=== PATIENT | male | born 1965 | race Caucasian/White ===

== ENCOUNTER 2019-12-06 14:27 | Inpatient (IN) ==
[2019-12-06] MEDS ORDERED: 0.9 % Sodium Chloride 1,000 ML IVC ONE ×2 (15:12→18:23)
[2019-12-06] MEDS ORDERED: cefTRIAXone 1,000 MG in Water for inj. (sterile) 10 ML IVP ONE (15:12)
[2019-12-06 15:34] LABS: Basophils % 0.2 %; Eosinophils % 0.1 %; Hematocrit 46.4 % (37.5-50.1); Hemoglobin 15.4 g/dL (12.9-16.9); Immature Granulocytes % 0.7 % (0-4); Lymphocytes # 0.7 K/mcL (0.6-4.6); Lymphocytes % 4.2 %; Mean Corpuscular HGB Conc 33.2 g/dL (31.6-35.5); Mean Corpuscular Hemoglobin 33.8 pg (28.0-33.3); Mean Corpuscular Volume 101.8 fL (83.0-100.0); Mean Platelet Volume 10.8 fL (9.4-12.4); Monocytes # 0.7 K/mcL (0.0-1.3); Monocytes % 4.2 %; Neutrophils # 14.9 K/mcL (1.6-8.9); Platelet Count 273 K/mcL (140-400); Red Blood Count 4.56 M/mcL (4.19-5.50); Red Cell Distribution Width 14.1 % (11.5-14.5); Segmented Neutrophils % 90.6 %; White Blood Count 16.5 K/mcL (4.3-11.1)
[2019-12-06 15:48] LABS: INR 1.5; Prothrombin Time 16.7 Seconds (9.4-12.1)
[2019-12-06 15:51] LABS: Activated Partial Thrombo Time 32.1 Seconds (26.0-36.0)
[2019-12-06 15:54] LABS: Alanine Aminotransferase 15 Units/L (7-52); Albumin 3.1 g/dL (3.5-5.7); Albumin/Globulin Ratio 0.7 (1.1-2.2); Alkaline Phosphatase 71 Units/L (34-104); Aspartate Amino Transferase 21 Units/L (13-39); BUN/Creatinine Ratio 27 (6-26); Bilirubin,Direct 0.1 mg/dL (0.0-0.2); Bilirubin,Indirect 0.5 mg/dL (0.0-1.0); Bilirubin,Total 0.6 mg/dL (0.3-1.0); Blood Urea Nitrogen 29 mg/dL (6-20); Carbon Dioxide 29 mEq/L (23-29); Chloride 106 mEq/L (98-107); Globulin 4.3 g/dL (2.4-3.5); Glucose 163 mg/dL (70-105); Magnesium 2.3 mg/dL (1.6-2.6); Osmolality,Calculated 305 (280-300); Potassium 3.5 mEq/L (3.5-5.1); Sodium 143 mEq/L (136-145); Total Protein 7.4 g/dL (6.4-8.9); Troponin I 0.03 ng/mL (< 0.04); eGFR For African Americans > 60 (> 60); eGFR For Non-African Americans > 60 (> 60)
[2019-12-06] MEDS ORDERED: levoFLOXacin 500 MG/100 ML 500 MG/100 ML BAG IVPB ONE (16:12)
[2019-12-06 16:30] LABS: Bacteria,Urine None Seen per hpf (None-Few); Bilirubin,Urine Small (Negative); Blood,Urine Negative (Negative); Clarity,Urine Cloudy (Clear); Color,Urine Dark Yellow (Yellow); Glucose,Urine (UA) Normal (Normal); Hyaline Casts,Urine None Seen per lpf (None-Few); Ketones,Urine Trace mg/dL (Negative); Leukocyte Esterase,Urine Small (Negative); Nitrite,Urine Negative (Negative); PH,Urine 5.5 pH Units (5.0-8.0); Protein,Urine 30 mg/dL (Neg-Trace); RBC,Urine 0-3 per hpf (0-3); Specific Gravity,Urine 1.028 (1.010-1.025); Squamous Epithelial Cell,Urine Many per lpf (None-Few); Urobilinogen,Urine Normal (Normal); WBC,Urine 0-3 per hpf (0-3)
[2019-12-06] MEDS ORDERED: 0.9 % Sodium Chloride 1,000 ML ONE (17:16)
[2019-12-06] MEDS ORDERED: Haloperidol Lactate 5 MG/ML VIAL IM ONE (18:05)
[2019-12-06] MEDS ORDERED: *HR* LORazepam 2 MG/ML VIAL ONE (19:46)
[2019-12-06] MEDS ORDERED: *HR* LORazepam 2 MG/ML VIAL IVP ONE (19:51)
[2019-12-06] MEDS ORDERED: 0.9 % Sodium Chloride 500 ML IVC ONE (20:28)
[2019-12-06] MEDS ORDERED: 0.9 % Sodium Chloride 500 ML ONE (20:29)
[2019-12-06] MEDS ORDERED: Naloxone 0.4 MG/ML INJ IVP PRN (20:30)
[2019-12-06 21:30] LABS: LDH,Pleural Fluid > 1200 Units/L (No Ref Range); Total Protein,Pleural Fluid 4.4 g/dL
[2019-12-06] MEDS ORDERED: 0.9 % Sodium Chloride 1,000 ML IVC SCH (21:30)
[2019-12-06 22:43] LABS: Basophils,Pleural Fluid 0 %; Eosinophils,Pleural Fluid 0 %; Monocytes,Pleural Fluid 0 %
[2019-12-07 00:03] LABS: Appearance of Pleural Fl Bloody (Clear)
[2019-12-07 02:44] LABS: Basophils % 0.3 %; Eosinophils # 0.1 K/mcL (0.0-0.6); Eosinophils % 0.4 %; Hematocrit 41.4 % (37.5-50.1); Immature Granulocytes % 0.7 % (0-4); Lymphocytes # 0.8 K/mcL (0.6-4.6); Lymphocytes % 6.8 %; Mean Corpuscular HGB Conc 32.6 g/dL (31.6-35.5); Mean Corpuscular Hemoglobin 33.7 pg (28.0-33.3); Mean Corpuscular Volume 103.2 fL (83.0-100.0); Mean Platelet Volume 10.9 fL (9.4-12.4); Monocytes # 0.7 K/mcL (0.0-1.3); Monocytes % 5.5 %; Neutrophils # 10.1 K/mcL (1.6-8.9); Platelet Count 218 K/mcL (140-400); Red Blood Count 4.01 M/mcL (4.19-5.50); Segmented Neutrophils % 86.3 %; White Blood Count 11.8 K/mcL (4.3-11.1)
[2019-12-07 02:46] LABS: Hemoglobin 13.5 g/dL (12.9-16.9)
[2019-12-07 02:56] LABS: Alanine Aminotransferase 11 Units/L (7-52); Albumin 2.2 g/dL (3.5-5.7); Albumin/Globulin Ratio 0.7 (1.1-2.2); Alkaline Phosphatase 53 Units/L (34-104); Aspartate Amino Transferase 20 Units/L (13-39); BUN/Creatinine Ratio 26 (6-26); Bilirubin,Total 0.5 mg/dL (0.3-1.0); Blood Urea Nitrogen 20 mg/dL (6-20); Calcium 7.5 mg/dL (8.6-10.3); Carbon Dioxide 24 mEq/L (23-29); Chloride 117 mEq/L (98-107); Globulin 3.2 g/dL (2.4-3.5); Glucose 98 mg/dL (70-105); Osmolality,Calculated 303 (280-300); Potassium 3.4 mEq/L (3.5-5.1); Sodium 145 mEq/L (136-145); Total Protein 5.4 g/dL (6.4-8.9); eGFR For African Americans > 60 (> 60); eGFR For Non-African Americans > 60 (> 60)
[2019-12-07 04:20] LABS: Lactate Dehydrogenase 153 Units/L (140-271)
[2019-12-07] MEDS: cefTRIAXone 2,000 MG in Water for inj. (sterile) 20 ML IVP SCH (09:03)
[2019-12-07] MEDS: Azithromycin 500 MG in 0.9 % Sodium Chloride 250 ML IVPB SCH (09:04)
[2019-12-07] MEDS: Ringers Solution, Lactated 1,000 ML IVC SCH ×2 (14:02→23:22)
[2019-12-07] MEDS ORDERED: *HR* FentaNYL PATCH 25 MCG PATCH TD SCH (15:30)
[2019-12-07] MEDS: MetroNIDAZOLE 500 MG/100 ML 500 MG/100 ML BAG IVPB SCH ×2 (16:39→23:23)
[2019-12-07] MEDS ORDERED: levoFLOXacin 500 MG/100 ML 500 MG/100 ML BAG IVPB SCH (18:00)
[2019-12-07] MEDS ORDERED: Acetaminophen 325 MG TABLET PO ONE (20:15)
[2019-12-08 01:21] LABS: Hematocrit 37.8 % (37.5-50.1); Hemoglobin 12.4 g/dL (12.9-16.9); Mean Corpuscular HGB Conc 32.8 g/dL (31.6-35.5); Mean Corpuscular Hemoglobin 33.5 pg (28.0-33.3); Mean Corpuscular Volume 102.2 fL (83.0-100.0); Mean Platelet Volume 10.7 fL (9.4-12.4); Platelet Count 210 K/mcL (140-400); Red Cell Distribution Width 13.9 % (11.5-14.5)
[2019-12-08 01:41] LABS: BUN/Creatinine Ratio 16 (6-26); Blood Urea Nitrogen 12 mg/dL (6-20); Calcium 7.8 mg/dL (8.6-10.3); Carbon Dioxide 24 mEq/L (23-29); Chloride 114 mEq/L (98-107); Glucose 96 mg/dL (70-105); Osmolality,Calculated 294 (280-300); Potassium 3.4 mEq/L (3.5-5.1); Sodium 142 mEq/L (136-145); eGFR For African Americans > 60 (> 60); eGFR For Non-African Americans > 60 (> 60)
[2019-12-08] MEDS: cefTRIAXone 2,000 MG in Water for inj. (sterile) 20 ML IVP SCH (08:24)
[2019-12-08] MEDS: Azithromycin 500 MG in 0.9 % Sodium Chloride 250 ML IVPB SCH (08:25)
[2019-12-08] MEDS: MetroNIDAZOLE 500 MG/100 ML 500 MG/100 ML BAG IVPB SCH ×2 (08:26→18:11)
[2019-12-08] MEDS: Ringers Solution, Lactated 1,000 ML IVC SCH ×3 (09:57→20:05)
[2019-12-08] MEDS ORDERED: *HR* Midazolam HCl 2 MG/2 ML VIAL ONE (12:20)
[2019-12-08] MEDS ORDERED: Lidocaine -MPF 2% 2 ML VIAL ONE (12:20)
[2019-12-08] MEDS ORDERED: *HR* Succinylcholine 200 MG/10 ML VIAL IVP ONE (12:20)
[2019-12-08] MEDS ORDERED: *HR* Rocuronium Bromide 50 MG/5 ML VIAL ONE (12:20)
[2019-12-08] MEDS ORDERED: *HR* FentaNYL (PF) 100 MCG/2 ML VIAL ONE (12:20)
[2019-12-08] MEDS ORDERED: Ondansetron 4 MG/2 ML VIAL ONE (12:20)
[2019-12-08] MEDS ORDERED: *HR* Propofol 200 MG/20 ML VIAL IVP ONE (12:20)
[2019-12-08] MEDS ORDERED: Lidocaine HCL 4 ML Topical Solution (Laryng-O-Jet Kit Sterile Pak) TP ONE (12:20)
[2019-12-08] MEDS ORDERED: Ketorolac 30 MG/ML VIAL ONE (12:20)
[2019-12-08] MEDS ORDERED: Dexamethasone 4 MG/ML VIAL ONE (12:20)
[2019-12-08] MEDS ORDERED: Morphine Sulfate 2 MG/ML SYRINGE IVP PRN ×2 (13:26→15:51)
[2019-12-08] MEDS ORDERED: Ondansetron 4 MG/2 ML VIAL IVP ONE ×2 (13:26→15:51)
[2019-12-08] MEDS ORDERED: Ketamine *HR* 500 MG/10 ML MDV ONE (13:31)
[2019-12-08] MEDS ORDERED: Lidocaine Jelly 6ml 1 APPL/6 ML JEL.PF.APP ONE (13:31)
[2019-12-08] MEDS ORDERED: *HR* PHENYLEPHRINE 1,000 MCG/10 ML SYRINGE IVP ONE ×3 (14:27→14:53)
[2019-12-08] MEDS ORDERED: Naloxone 0.4 MG/ML INJ IVP PRN (15:51)
[2019-12-08] MEDS ORDERED: Cefepime HCl 2,000 MG in Water for inj. (sterile) 20 ML IVP SCH (16:00)
[2019-12-08] MEDS: Ipratropium/Albuterol Neb 3 ML IH SCH ×2 (16:22→20:06)
[2019-12-08] MEDS: Ketorolac 15 MG/ML VIAL IVP SCH (18:10)
[2019-12-08] MEDS: Cefepime HCl 2,000 MG in Water for inj. (sterile) 20 ML IVP SCH (18:10)
[2019-12-08] MEDS: Acetylcysteine 10% 2 ML INHSOL IH SCH (20:06)
[2019-12-08] MEDS: *HR* Heparin 5,000 UNIT/ML VIAL SQ SCH (21:47)
[2019-12-09] MEDS: Cefepime HCl 2,000 MG in Water for inj. (sterile) 20 ML IVP SCH ×4 (00:01→23:26)
[2019-12-09] MEDS: Ketorolac 15 MG/ML VIAL IVP SCH ×6 (00:01→23:57)
[2019-12-09] MEDS: MetroNIDAZOLE 500 MG/100 ML 500 MG/100 ML BAG IVPB SCH ×2 (00:02→08:10)
[2019-12-09] MEDS: Acetylcysteine 10% 2 ML INHSOL IH SCH ×7 (00:43→23:35)
[2019-12-09] MEDS: Ipratropium/Albuterol Neb 3 ML IH SCH ×7 (00:43→23:35)
[2019-12-09] MEDS: *HR* Heparin 5,000 UNIT/ML VIAL SQ SCH ×3 (05:37→22:04)
[2019-12-09] MEDS: Ringers Solution, Lactated 1,000 ML IVC SCH ×2 (05:40→23:56)
[2019-12-09 06:47] LABS: Basophils % 0.2 %; Hematocrit 43.2 % (37.5-50.1); Immature Granulocytes % 0.6 % (0-4); Lymphocytes # 0.4 K/mcL (0.6-4.6); Lymphocytes % 2.6 %; Mean Corpuscular HGB Conc 32.4 g/dL (31.6-35.5); Mean Corpuscular Hemoglobin 34.1 pg (28.0-33.3); Mean Corpuscular Volume 105.4 fL (83.0-100.0); Mean Platelet Volume 11.1 fL (9.4-12.4); Monocytes # 0.4 K/mcL (0.0-1.3); Monocytes % 2.3 %; Neutrophils # 14.9 K/mcL (1.6-8.9); Platelet Count 210 K/mcL (140-400); Red Cell Distribution Width 14.3 % (11.5-14.5); Segmented Neutrophils % 94.3 %; White Blood Count 15.8 K/mcL (4.3-11.1)
[2019-12-09 06:55] LABS: BUN/Creatinine Ratio 20 (6-26); Blood Urea Nitrogen 18 mg/dL (6-20); Calcium 7.9 mg/dL (8.6-10.3); Carbon Dioxide 24 mEq/L (23-29); Chloride 108 mEq/L (98-107); Glucose 246 mg/dL (70-105); Osmolality,Calculated 300 (280-300); Sodium 140 mEq/L (136-145); eGFR For African Americans > 60 (> 60); eGFR For Non-African Americans > 60 (> 60)
[2019-12-09] MEDS ORDERED: Azithromycin 500 MG in 0.9 % Sodium Chloride 250 ML IVPB SCH (08:00)
[2019-12-09] MEDS ORDERED: MetroNIDAZOLE 500 MG/100 ML 500 MG/100 ML BAG IVPB SCH (10:55)
[2019-12-09] MEDS ORDERED: *HR* Succinylcholine 200 MG/10 ML VIAL IVP ONE (11:36)
[2019-12-09] MEDS ORDERED: Lidocaine -MPF 2% 2 ML VIAL ONE (11:36)
[2019-12-09] MEDS ORDERED: *HR* Propofol 200 MG/20 ML VIAL IVP ONE (11:36)
[2019-12-09 11:38] LABS: ABG Base Excess 2 mEq/L (-2 to 3); ABG HCO3 28 mEq/L (21-27); ABG Oxygen Saturation 99 % (95-98); ABG PCO2 51 mmHg (35-45); ABG PH 7.35 pH Units (7.32-7.45); ABG PO2 131 mmHg (85-104); ABG TCO2 30 mEq/L (20-26)
[2019-12-09] MEDS ORDERED: *HR* PHENYLEPHRINE 1,000 MCG/10 ML SYRINGE IVP ONE (12:50)
[2019-12-10] MEDS: Ringers Solution, Lactated 1,000 ML IVC SCH (03:06)
[2019-12-10] MEDS: Ipratropium/Albuterol Neb 3 ML IH SCH ×5 (03:25→23:32)
[2019-12-10] MEDS: Acetylcysteine 10% 2 ML INHSOL IH SCH ×5 (03:25→23:32)
[2019-12-10] MEDS: *HR* Heparin 5,000 UNIT/ML VIAL SQ SCH ×3 (05:50→21:10)
[2019-12-10] MEDS: Ketorolac 15 MG/ML VIAL IVP SCH ×2 (05:50→16:17)
[2019-12-10] MEDS ORDERED: Furosemide 20 MG/2 ML VIAL IVP ONE ×2 (07:09→13:00)
[2019-12-10] MEDS ORDERED: *HR* OxyCODONE Oral Soln 5 MG/5 ML UD.LIQ ONE ×2 (09:03→14:57)
[2019-12-10] MEDS ORDERED: NAFCILLIN IVPB ONE (12:00)
[2019-12-10] MEDS ORDERED: SODIUM CHLORIDE 0.9% IVPB ONE (12:00)
[2019-12-10] MEDS ORDERED: *HR* Heparin 5,000 UNIT/ML VIAL ONE (13:00)
[2019-12-10] MEDS ORDERED: Water for inj. (sterile) 20 ML VIAL IV ONE (13:00)
[2019-12-10] MEDS ORDERED: Ipratropium/Albuterol Neb 3 ML ONE (13:00)
[2019-12-10] MEDS ORDERED: Ketorolac 15 MG/ML VIAL ONE (13:00)
[2019-12-10 14:43] LABS: Hematocrit 40.9 % (37.5-50.1); Hemoglobin 13.7 g/dL (12.9-16.9); Mean Corpuscular HGB Conc 33.5 g/dL (31.6-35.5); Mean Corpuscular Hemoglobin 33.8 pg (28.0-33.3); Mean Platelet Volume 11.8 fL (9.4-12.4); Platelet Count 215 K/mcL (140-400); Red Blood Count 4.05 M/mcL (4.19-5.50); Red Cell Distribution Width 14.4 % (11.5-14.5)
[2019-12-10] MEDS ORDERED: *HR* OxyCODONE Oral Soln 5 MG/5 ML UD.LIQ GTUBE PRN ×2 (15:28→21:26)
[2019-12-10] MEDS ORDERED: *HR* FentaNYL PATCH 25 MCG PATCH TD SCH (15:30)
[2019-12-10 16:22] LABS: White Blood Count 44.5 K/mcL (4.3-11.1)
[2019-12-10] MEDS: Nafcillin 2,000 MG in 0.9 % Sodium Chloride Mini Bag 100 ML IVPB SCH ×3 (16:22→23:43)
[2019-12-10 16:24] LABS: Lymphocytes # 0.5 K/mcL (0.6-4.6); Neutrophils # 44.1 K/mcL (1.6-8.9); Platelet Estimate Normal (Normal)
[2019-12-10] MEDS ORDERED: *HR* OxyCODONE Oral Soln 5 MG/5 ML UD.LIQ GTUBE ONE ×3 (17:15→21:38)
[2019-12-10] MEDS: Ketorolac 15 MG/ML VIAL IVP PRN (19:33)
[2019-12-10 20:48] LABS: Hematocrit 39.4 % (37.5-50.1); Hemoglobin 12.8 g/dL (12.9-16.9); Immature Granulocytes % 0.8 % (0-4); Mean Corpuscular HGB Conc 32.5 g/dL (31.6-35.5); Red Cell Distribution Width 14.6 % (11.5-14.5)
[2019-12-10 20:50] LABS: Basophils # 0.1 K/mcL (0.0-0.2); Basophils % 0.2 %; Lymphocytes # 0.7 K/mcL (0.6-4.6); Lymphocytes % 2.2 %; Mean Corpuscular Volume 104.5 fL (83.0-100.0); Mean Platelet Volume 11.3 fL (9.4-12.4); Monocytes # 0.5 K/mcL (0.0-1.3); Monocytes % 1.4 %; Platelet Count 223 K/mcL (140-400); Red Blood Count 3.77 M/mcL (4.19-5.50); Segmented Neutrophils % 95.4 %
[2019-12-10 20:57] LABS: White Blood Count 32.5 K/mcL (4.3-11.1)
[2019-12-10 20:59] LABS: BUN/Creatinine Ratio 23 (6-26); Blood Urea Nitrogen 21 mg/dL (6-20); Calcium 7.7 mg/dL (8.6-10.3); Carbon Dioxide 33 mEq/L (23-29); Chloride 108 mEq/L (98-107); Glucose 151 mg/dL (70-105); Magnesium 2.2 mg/dL (1.6-2.6); Osmolality,Calculated 302 (280-300); Phosphorous 1.8 mg/dL (2.7-4.5); Potassium 3.6 mEq/L (3.5-5.1); Sodium 143 mEq/L (136-145); eGFR For African Americans > 60 (> 60); eGFR For Non-African Americans > 60 (> 60)
[2019-12-10 21:23] LABS: Hypochromasia Present (Not Present)
[2019-12-11 02:45] LABS: BUN/Creatinine Ratio 24 (6-26); Blood Urea Nitrogen 18 mg/dL (6-20); Calcium 8.2 mg/dL (8.6-10.3); Carbon Dioxide 23 mEq/L (23-29); Chloride 113 mEq/L (98-107); Glucose 117 mg/dL (70-105); Osmolality,Calculated 311 (280-300); Potassium 4.7 mEq/L (3.5-5.1); Sodium 149 mEq/L (136-145); eGFR For African Americans > 60 (> 60); eGFR For Non-African Americans > 60 (> 60)
[2019-12-11] MEDS: Acetylcysteine 10% 2 ML INHSOL IH SCH ×5 (03:38→19:25)
[2019-12-11] MEDS: Ipratropium/Albuterol Neb 3 ML IH SCH ×5 (03:38→19:24)
[2019-12-11] MEDS: *HR* OxyCODONE Oral Soln 5 MG/5 ML UD.LIQ GTUBE PRN ×3 (03:47→20:01)
[2019-12-11] MEDS: Nafcillin 2,000 MG in 0.9 % Sodium Chloride Mini Bag 100 ML IVPB SCH ×5 (04:08→19:55)
[2019-12-11] MEDS: Ketorolac 15 MG/ML VIAL IVP PRN (04:08)
[2019-12-11] MEDS: *HR* Heparin 5,000 UNIT/ML VIAL SQ SCH ×3 (05:33→21:54)
[2019-12-11 05:52] LABS: Basophils % 0.2 %; Immature Granulocytes % 0.8 % (0-4)
[2019-12-11 05:54] LABS: Basophils # 0.1 K/mcL (0.0-0.2); Hematocrit 42.9 % (37.5-50.1); Lymphocytes # 1.1 K/mcL (0.6-4.6); Lymphocytes % 3.6 %; Mean Corpuscular HGB Conc 32.6 g/dL (31.6-35.5); Mean Corpuscular Hemoglobin 33.8 pg (28.0-33.3); Mean Corpuscular Volume 103.6 fL (83.0-100.0); Mean Platelet Volume 11.4 fL (9.4-12.4); Monocytes # 0.5 K/mcL (0.0-1.3); Monocytes % 1.5 %; Platelet Count 208 K/mcL (140-400); Red Blood Count 4.14 M/mcL (4.19-5.50); Red Cell Distribution Width 14.7 % (11.5-14.5); Segmented Neutrophils % 93.9 %
[2019-12-11 06:07] LABS: Neutrophils # 28.6 K/mcL (1.6-8.9)
[2019-12-11 06:09] LABS: White Blood Count 30.5 K/mcL (4.3-11.1)
[2019-12-11 06:10] LABS: Alanine Aminotransferase 16 Units/L (7-52); Albumin 2.1 g/dL (3.5-5.7); Albumin/Globulin Ratio 0.6 (1.1-2.2); Alkaline Phosphatase 55 Units/L (34-104); Aspartate Amino Transferase 41 Units/L (13-39); BUN/Creatinine Ratio 26 (6-26); Bilirubin,Total 0.6 mg/dL (0.3-1.0); Blood Urea Nitrogen 24 mg/dL (6-20); Calcium 7.6 mg/dL (8.6-10.3); Carbon Dioxide 32 mEq/L (23-29); Chloride 108 mEq/L (98-107); Globulin 3.7 g/dL (2.4-3.5); Glucose 134 mg/dL (70-105); Magnesium 2.3 mg/dL (1.6-2.6); Osmolality,Calculated 306 (280-300); Phosphorous 2.9 mg/dL (2.7-4.5); Potassium 4.3 mEq/L (3.5-5.1); Sodium 145 mEq/L (136-145); Total Protein 5.8 g/dL (6.4-8.9); eGFR For African Americans > 60 (> 60); eGFR For Non-African Americans > 60 (> 60)
[2019-12-11 06:30] LABS: Platelet Estimate Normal (Normal)
[2019-12-11] MEDS: Dexmedetomidine HCl 400 MCG/100 ML MLS IVC SCH (09:07)
[2019-12-11] MEDS ORDERED: 0.9 % Sodium Chloride 1,000 ML ONE (09:09)
[2019-12-11] MEDS: Metoclopramide 10 MG/10 ML UD.LIQ GTUBE SCH ×2 (11:56→17:39)
[2019-12-11 13:01] LABS: ABG Base Excess 7 mEq/L (-2 to 3); ABG HCO3 34 mEq/L (21-27); ABG Oxygen Saturation 88 % (95-98); ABG PCO2 57 mmHg (35-45); ABG PH 7.38 pH Units (7.32-7.45); ABG PO2 57 mmHg (85-104); ABG TCO2 35 mEq/L (20-26)
[2019-12-11] MEDS ORDERED: *HR* FentaNYL (PF) 100 MCG/2 ML VIAL ONE (22:41)
[2019-12-11] MEDS ORDERED: *HR* Propofol 200 MG/20 ML VIAL IVP ONE (22:41)
[2019-12-11] MEDS ORDERED: Lidocaine -MPF 2% 2 ML VIAL ONE (22:41)
[2019-12-11] MEDS ORDERED: *HR* Midazolam HCl 2 MG/2 ML VIAL ONE (22:41)
[2019-12-11] MEDS ORDERED: *HR* Succinylcholine 200 MG/10 ML VIAL IVP ONE (22:41)
[2019-12-11] MEDS ORDERED: *HR* Rocuronium Bromide 50 MG/5 ML VIAL ONE (22:41)
[2019-12-11 22:51] LABS: ABG Base Excess 9 mEq/L (-2 to 3); ABG HCO3 35 mEq/L (21-27); ABG Oxygen Saturation 98 % (95-98); ABG PCO2 50 mmHg (35-45); ABG PH 7.45 pH Units (7.32-7.45); ABG PO2 102 mmHg (85-104); ABG TCO2 37 mEq/L (20-26)
[2019-12-12] MEDS: Acetylcysteine 10% 2 ML INHSOL IH SCH ×7 (00:34→23:33)
[2019-12-12] MEDS: Ipratropium/Albuterol Neb 3 ML IH SCH ×7 (00:34→23:33)
[2019-12-12] MEDS: Norepinephrine 4 MG in 0.9 % Sodium Chloride 250 ML IVC SCH ×3 (00:38→14:10)
[2019-12-12] MEDS: Metoclopramide 10 MG/10 ML UD.LIQ GTUBE SCH ×3 (00:47→16:29)
[2019-12-12] MEDS: Nafcillin 2,000 MG in 0.9 % Sodium Chloride Mini Bag 100 ML IVPB SCH ×6 (00:47→20:11)
[2019-12-12] MEDS: *HR* OxyCODONE Oral Soln 5 MG/5 ML UD.LIQ GTUBE PRN ×2 (01:16→20:19)
[2019-12-12 04:56] LABS: ABG Base Excess 9 mEq/L (-2 to 3); ABG HCO3 34 mEq/L (21-27); ABG Oxygen Saturation 94 % (95-98); ABG PCO2 48 mmHg (35-45); ABG PH 7.47 pH Units (7.32-7.45); ABG PO2 68 mmHg (85-104); ABG TCO2 36 mEq/L (20-26); Blood Gas VT 400 cc
[2019-12-12] MEDS: *HR* Heparin 5,000 UNIT/ML VIAL SQ SCH ×3 (05:01→20:11)
[2019-12-12 05:32] LABS: Basophils % 0.1 %; Eosinophils % 0.1 %; Hematocrit 37.3 % (37.5-50.1); Immature Granulocytes % 0.7 % (0-4); Lymphocytes # 0.6 K/mcL (0.6-4.6); Lymphocytes % 2.9 %; Mean Corpuscular HGB Conc 32.2 g/dL (31.6-35.5); Mean Corpuscular Hemoglobin 33.4 pg (28.0-33.3); Mean Corpuscular Volume 103.9 fL (83.0-100.0); Mean Platelet Volume 11.6 fL (9.4-12.4); Monocytes # 0.3 K/mcL (0.0-1.3); Monocytes % 1.2 %; Neutrophils # 20.7 K/mcL (1.6-8.9); Platelet Count 228 K/mcL (140-400); Red Blood Count 3.59 M/mcL (4.19-5.50); Red Cell Distribution Width 14.8 % (11.5-14.5); White Blood Count 21.8 K/mcL (4.3-11.1)
[2019-12-12 05:53] LABS: Alanine Aminotransferase 15 Units/L (7-52); Albumin 1.8 g/dL (3.5-5.7); Albumin/Globulin Ratio 0.5 (1.1-2.2); Alkaline Phosphatase 46 Units/L (34-104); Aspartate Amino Transferase 33 Units/L (13-39); BUN/Creatinine Ratio 29 (6-26); Bilirubin,Total 0.5 mg/dL (0.3-1.0); Blood Urea Nitrogen 24 mg/dL (6-20); Calcium 7.2 mg/dL (8.6-10.3); Carbon Dioxide 34 mEq/L (23-29); Chloride 111 mEq/L (98-107); Globulin 3.4 g/dL (2.4-3.5); Glucose 151 mg/dL (70-105); Magnesium 2.5 mg/dL (1.6-2.6); Osmolality,Calculated 315 (280-300); Phosphorous 1.8 mg/dL (2.7-4.5); Potassium 3.6 mEq/L (3.5-5.1); Sodium 149 mEq/L (136-145); Total Protein 5.2 g/dL (6.4-8.9); eGFR For African Americans > 60 (> 60); eGFR For Non-African Americans > 60 (> 60)
[2019-12-12] MEDS ORDERED: Artificial Tears SOLN 15 ML BOTTLE BOTH EYES PRN (08:09)
[2019-12-12] MEDS: Ringers Solution, Lactated 1,000 ML IVC SCH ×2 (09:42→23:01)
[2019-12-12] MEDS: Pantoprazole 40 MG VIAL IVP SCH (09:42)
[2019-12-12] MEDS: Chlorhexidine Rinse 15 ML MOUTHWASH MM SCH ×2 (09:42→20:11)
[2019-12-12] MEDS: CLEAR EYES NATURAL TEARS 15 ML BOTTLE BOTH EYES SCH ×3 (09:42→20:13)
[2019-12-12 09:52] LABS: ABG Base Excess 10 mEq/L (-2 to 3); ABG HCO3 36 mEq/L (21-27); ABG Oxygen Saturation 99 % (95-98); ABG PCO2 52 mmHg (35-45); ABG PH 7.45 pH Units (7.32-7.45); ABG PO2 113 mmHg (85-104); ABG TCO2 38 mEq/L (20-26); Blood Gas VT 350 cc
[2019-12-12] MEDS ORDERED: Calcium Gluconate 1gm/50mL 1 GM/50 ML BAG IVPB PRN (10:22)
[2019-12-12] MEDS: Potassium Phosphate 44 MEQ in 0.9 % Sodium Chloride 250 ML IVPB PRN ×2 (10:48→23:03)
[2019-12-12] MEDS: Dexmedetomidine HCl 400 MCG/100 ML MLS IVC SCH ×2 (10:59→23:50)
[2019-12-12 16:40] LABS: Hematocrit 36.1 % (37.5-50.1); Hemoglobin 11.4 g/dL (12.9-16.9); Mean Corpuscular HGB Conc 31.6 g/dL (31.6-35.5); Mean Corpuscular Hemoglobin 32.7 pg (28.0-33.3); Mean Corpuscular Volume 103.4 fL (83.0-100.0); Mean Platelet Volume 11.8 fL (9.4-12.4); Platelet Count 229 K/mcL (140-400); Red Blood Count 3.49 M/mcL (4.19-5.50); Red Cell Distribution Width 14.8 % (11.5-14.5); White Blood Count 21.4 K/mcL (4.3-11.1)
[2019-12-12] MEDS: Norepinephrine 8 MG in 0.9 % Sodium Chloride 250 ML IVC SCH (20:14)
[2019-12-12] MEDS ORDERED: *HR* OxyCODONE Oral Soln 5 MG/5 ML UD.LIQ GTUBE ONE (21:25)
[2019-12-12] MEDS: FentaNYL (PF) 1,000 MCG in 0.9 % Sodium Chloride 80 ML IVC SCH (21:50)
[2019-12-12 22:19] LABS: Phosphorous 2.7 mg/dL (2.7-4.5); Potassium 3.2 mEq/L (3.5-5.1)
[2019-12-12] MEDS: Potassium Chloride 40 MEQ/200 ML BAG IVPB PRN (22:50)
[2019-12-13] MEDS: Hydrocortisone Sodium Succ 100 MG/2 ML VIAL IVP SCH ×5 (00:34→23:54)
[2019-12-13] MEDS: Metoclopramide 10 MG/10 ML UD.LIQ GTUBE SCH ×4 (00:34→23:54)
[2019-12-13] MEDS: CLEAR EYES NATURAL TEARS 15 ML BOTTLE BOTH EYES SCH ×7 (00:35→23:52)
[2019-12-13] MEDS: Nafcillin 2,000 MG in 0.9 % Sodium Chloride Mini Bag 100 ML IVPB SCH ×7 (00:35→23:52)
[2019-12-13] MEDS: Ipratropium/Albuterol Neb 3 ML IH SCH ×6 (03:23→23:22)
[2019-12-13] MEDS: Acetylcysteine 10% 2 ML INHSOL IH SCH ×6 (03:23→23:22)
[2019-12-13] MEDS: CLEAR EYES NATURAL TEARS 15 ML BOTTLE BOTH EYES PRN ×4 (04:11→23:51)
[2019-12-13 05:10] LABS: ABG Base Excess 7 mEq/L (-2 to 3); ABG HCO3 32 mEq/L (21-27); ABG Oxygen Saturation 95 % (95-98); ABG PCO2 47 mmHg (35-45); ABG PH 7.44 pH Units (7.32-7.45); ABG PO2 76 mmHg (85-104); ABG TCO2 33 mEq/L (20-26); Blood Gas VT 350 cc
[2019-12-13] MEDS: *HR* Heparin 5,000 UNIT/ML VIAL SQ SCH ×3 (05:21→21:01)
[2019-12-13] MEDS: Chlorhexidine Rinse 15 ML MOUTHWASH MM SCH ×2 (08:18→20:57)
[2019-12-13] MEDS: Pantoprazole 40 MG VIAL IVP SCH (08:18)
[2019-12-13] MEDS: Dexmedetomidine HCl 400 MCG/100 ML MLS IVC SCH ×2 (08:19→17:39)
[2019-12-13 09:16] LABS: Hematocrit 33.2 % (37.5-50.1); Hemoglobin 10.6 g/dL (12.9-16.9); Mean Corpuscular HGB Conc 31.9 g/dL (31.6-35.5); Mean Corpuscular Hemoglobin 33.2 pg (28.0-33.3); Mean Corpuscular Volume 104.1 fL (83.0-100.0); Mean Platelet Volume 12.1 fL (9.4-12.4); Platelet Count 205 K/mcL (140-400); Red Blood Count 3.19 M/mcL (4.19-5.50); Red Cell Distribution Width 15.2 % (11.5-14.5); White Blood Count 15.1 K/mcL (4.3-11.1)
[2019-12-13 09:28] LABS: BUN/Creatinine Ratio 24 (6-26); Blood Urea Nitrogen 16 mg/dL (6-20); Carbon Dioxide 30 mEq/L (23-29); Chloride 112 mEq/L (98-107); Glucose 184 mg/dL (70-105); Magnesium 2.2 mg/dL (1.6-2.6); Osmolality,Calculated 304 (280-300); Phosphorous 3.2 mg/dL (2.7-4.5); Potassium 3.8 mEq/L (3.5-5.1); Sodium 144 mEq/L (136-145); eGFR For African Americans > 60 (> 60); eGFR For Non-African Americans > 60 (> 60)
[2019-12-13] MEDS: Potassium Chloride 40 MEQ/200 ML BAG IVPB PRN ×2 (10:03→11:11)
[2019-12-13] MEDS: Norepinephrine 8 MG in 0.9 % Sodium Chloride 250 ML IVC SCH (13:25)
[2019-12-13] MEDS: FentaNYL (PF) 1,000 MCG in 0.9 % Sodium Chloride 80 ML IVC SCH ×2 (13:26→22:30)
[2019-12-14] MEDS: Dexmedetomidine HCl 400 MCG/100 ML MLS IVC SCH ×3 (02:30→21:05)
[2019-12-14] MEDS: Acetylcysteine 10% 2 ML INHSOL IH SCH ×2 (03:25→07:06)
[2019-12-14] MEDS: Ipratropium/Albuterol Neb 3 ML IH SCH ×6 (03:25→23:20)
[2019-12-14] MEDS: CLEAR EYES NATURAL TEARS 15 ML BOTTLE BOTH EYES SCH ×6 (03:48→23:22)
[2019-12-14] MEDS: Nafcillin 2,000 MG in 0.9 % Sodium Chloride Mini Bag 100 ML IVPB SCH (03:51)
[2019-12-14 04:08] LABS: Hematocrit 32.6 % (37.5-50.1); Hemoglobin 10.5 g/dL (12.9-16.9); Mean Corpuscular HGB Conc 32.2 g/dL (31.6-35.5); Mean Corpuscular Volume 105.5 fL (83.0-100.0); Mean Platelet Volume 11.7 fL (9.4-12.4); Platelet Count 218 K/mcL (140-400); Red Blood Count 3.09 M/mcL (4.19-5.50); Red Cell Distribution Width 15.6 % (11.5-14.5); White Blood Count 21.7 K/mcL (4.3-11.1)
[2019-12-14 04:26] LABS: BUN/Creatinine Ratio 25 (6-26); Blood Urea Nitrogen 18 mg/dL (6-20); Calcium 7.6 mg/dL (8.6-10.3); Carbon Dioxide 31 mEq/L (23-29); Chloride 110 mEq/L (98-107); Glucose 149 mg/dL (70-105); Magnesium 2.1 mg/dL (1.6-2.6); Osmolality,Calculated 303 (280-300); Phosphorous 3.3 mg/dL (2.7-4.5); Sodium 144 mEq/L (136-145); eGFR For African Americans > 60 (> 60); eGFR For Non-African Americans > 60 (> 60)
[2019-12-14] MEDS: *HR* Heparin 5,000 UNIT/ML VIAL SQ SCH ×3 (05:00→21:03)
[2019-12-14] MEDS: Hydrocortisone Sodium Succ 100 MG/2 ML VIAL IVP SCH ×4 (05:00→23:22)
[2019-12-14 05:06] LABS: ABG Base Excess 7 mEq/L (-2 to 3); ABG HCO3 33 mEq/L (21-27); ABG Oxygen Saturation 95 % (95-98); ABG PCO2 53 mmHg (35-45); ABG PO2 76 mmHg (85-104); ABG TCO2 34 mEq/L (20-26); Blood Gas Modality AF; Blood Gas VT 350 cc
[2019-12-14] MEDS: FentaNYL (PF) 1,000 MCG in 0.9 % Sodium Chloride 80 ML IVC SCH ×2 (06:42→15:38)
[2019-12-14] MEDS: Chlorhexidine Rinse 15 ML MOUTHWASH MM SCH ×2 (08:11→20:32)
[2019-12-14] MEDS: Pantoprazole 40 MG VIAL IVP SCH (08:11)
[2019-12-14] MEDS: Metoclopramide 10 MG/10 ML UD.LIQ GTUBE SCH (08:14)
[2019-12-14] MEDS ORDERED: Furosemide 20 MG/2 ML VIAL IVP ONE (10:27)
[2019-12-14] MEDS: Piperacillin/Tazobactam 3.375 GM in 0.9 % Sodium Chloride Mini Bag 100 ML IVPB SCH ×2 (10:41→17:40)
[2019-12-14] MEDS: Norepinephrine 8 MG in 0.9 % Sodium Chloride 250 ML IVC SCH (17:45)
[2019-12-15] MEDS: Piperacillin/Tazobactam 3.375 GM in 0.9 % Sodium Chloride Mini Bag 100 ML IVPB SCH ×2 (01:19→09:03)
[2019-12-15] MEDS: Ipratropium/Albuterol Neb 3 ML IH SCH ×4 (03:17→15:12)
[2019-12-15] MEDS: CLEAR EYES NATURAL TEARS 15 ML BOTTLE BOTH EYES SCH ×3 (03:25→12:02)
[2019-12-15 04:56] LABS: ABG Base Excess 5 mEq/L (-2 to 3); ABG HCO3 32 mEq/L (21-27); ABG Oxygen Saturation 93 % (95-98); ABG PCO2 57 mmHg (35-45); ABG PH 7.35 pH Units (7.32-7.45); ABG PO2 71 mmHg (85-104); ABG TCO2 33 mEq/L (20-26); Blood Gas Modality AF; Blood Gas VT 350 cc
[2019-12-15 04:58] LABS: Basophils % 0.1 %; Hematocrit 29.4 % (37.5-50.1); Hemoglobin 9.1 g/dL (12.9-16.9); Immature Granulocytes % 0.7 % (0-4); Lymphocytes # 0.6 K/mcL (0.6-4.6); Lymphocytes % 3.8 %; Mean Corpuscular Hemoglobin 33.1 pg (28.0-33.3); Mean Corpuscular Volume 106.9 fL (83.0-100.0); Mean Platelet Volume 12.1 fL (9.4-12.4); Monocytes # 0.5 K/mcL (0.0-1.3); Neutrophils # 14.9 K/mcL (1.6-8.9); Platelet Count 210 K/mcL (140-400); Red Blood Count 2.75 M/mcL (4.19-5.50); Red Cell Distribution Width 15.7 % (11.5-14.5); Segmented Neutrophils % 92.4 %; White Blood Count 16.2 K/mcL (4.3-11.1)
[2019-12-15 05:21] LABS: Alanine Aminotransferase 18 Units/L (7-52); Albumin 1.6 g/dL (3.5-5.7); Albumin/Globulin Ratio 0.4 (1.1-2.2); Alkaline Phosphatase 40 Units/L (34-104); Aspartate Amino Transferase 29 Units/L (13-39); BUN/Creatinine Ratio 24 (6-26); Bilirubin,Total 0.3 mg/dL (0.3-1.0); Blood Urea Nitrogen 18 mg/dL (6-20); Calcium 7.3 mg/dL (8.6-10.3); Carbon Dioxide 31 mEq/L (23-29); Chloride 111 mEq/L (98-107); Globulin 3.8 g/dL (2.4-3.5); Glucose 146 mg/dL (70-105); Osmolality,Calculated 299 (280-300); Potassium 2.8 mEq/L (3.5-5.1); Sodium 142 mEq/L (136-145); Total Protein 5.4 g/dL (6.4-8.9); eGFR For African Americans > 60 (> 60); eGFR For Non-African Americans > 60 (> 60)
[2019-12-15] MEDS: *HR* Heparin 5,000 UNIT/ML VIAL SQ SCH ×2 (05:25→14:19)
[2019-12-15] MEDS: Hydrocortisone Sodium Succ 100 MG/2 ML VIAL IVP SCH ×2 (05:26→11:58)
[2019-12-15] MEDS: FentaNYL (PF) 1,000 MCG in 0.9 % Sodium Chloride 80 ML IVC SCH ×3 (06:12→12:53)
[2019-12-15] MEDS: Dexmedetomidine HCl 400 MCG/100 ML MLS IVC SCH (06:31)
[2019-12-15] MEDS ORDERED: Aminoglycoside Consult 1 EACH MC ONE (08:16)
[2019-12-15] MEDS: Pantoprazole 40 MG VIAL IVP SCH (09:02)
[2019-12-15] MEDS: Chlorhexidine Rinse 15 ML MOUTHWASH MM SCH (09:02)
[2019-12-15] MEDS ORDERED: Furosemide 40 MG/4 ML VIAL IVP ONE (09:11)
[2019-12-15] MEDS: Potassium Chloride 40 MEQ/200 ML BAG IVPB PRN (10:00)
[2019-12-15] MEDS ORDERED: *HR* Dextrose 50 % in Water (Syg) 50 ML SYRINGE IVP PRN (11:27)
[2019-12-15] MEDS ORDERED: Dextrose Gel 15 GM/37.5 ML TUBE PO PRN ×2 (11:27)
[2019-12-15] MEDS ORDERED: D5% in Water 1,000 ML IVC PRN (11:27)
[2019-12-15] MEDS ORDERED: D10% in Water 500 ML IVC PRN (11:28)
[2019-12-15] MEDS ORDERED: risperiDONE 0.25 MG TABLET PO ONE (12:00)
[2019-12-15] MEDS ORDERED: Insulin LISPRO 300 UNITS/3 ML VIAL SQ SCH (12:00)
[2019-12-15] MEDS ORDERED: Clinimix E 5%-15% SOLUTION 2,000 ML with MVI, adult with vitamin K 10 ML IVC SCH (17:00)
[2019-12-15 19:23] VITALS: BP 92/71
[2019-12-15] MEDS: *HR* LORazepam 2 MG/ML VIAL IVP PRN (19:34)
[2019-12-16] MEDS ORDERED: Atropine Sulfate 1% 40 DROP/2 ML BOTTLE SL PRN (00:24)
[2019-12-16] MEDS: *HR* LORazepam 2 MG/ML VIAL IVP PRN ×3 (00:26→05:01)
[2019-12-16] MEDS: *HR* OxyCODONE Oral Soln 5 MG/5 ML UD.LIQ GTUBE PRN (05:30)
== END 2019-12-16 06:15 | disposition expired | DRG 853 ==
LOC: EMEROOARM 14:27 → 2NNU 14:27 → ICNU 12-08 16:31 → 2ANU 12-15 18:14
PROVIDERS: ADMIT Student in an Organized Health Care Education/Training Program; ATTEND Student in an Organized Health Care Education/Training Program